=== PATIENT | female | born 1950 | race Caucasian/White ===

== ENCOUNTER → 2017-12-05 | Outpatient (CLI) | payer MEDICARE, OTHER ==
[~2017-12-05] MED LIST: ADVIL PO; ASPIR 8181 MG PO; ATORVASTATIN CA40 MG PO; B-12500 MCG PO; CENTRUM SILVER1 EAC4 PO; LASIX 40 MG TAB40 M2 PO; MAGOX 400400 MG PO; MOBIC7.5 MG PO; POTASSIUM20 PO; PROZAC40 MG PO; TIROSINT137 MCG PO; TRIAMTERENE-HC1 EAC1 PO; VITAMIN D-32000 UNIT PO
== END ==
LOC: M.RAD 13:02
DX: Z78.0 Asymptomatic menopausal state (principal)

== ENCOUNTER 2017-12-07 11:15 | Inpatient (IN) | payer MEDICARE, OTHER ==
[~2017-12-07] VITALS: Ht 154.9 cm; Wt 152.9 kg
[~2017-12-07 11:15] MED LIST changes: -ASPIR 8181 MG PO; -ATORVASTATIN CA40 MG PO; -LASIX 40 MG TAB40 M2 PO; -MAGOX 400400 MG PO; -MOBIC7.5 MG PO; -POTASSIUM20 PO; -TIROSINT137 MCG PO
[2017-12-07 11:24] VITALS: BP 167/83
[2017-12-07] MEDS ORDERED: LASIX 40 MG TAB40 M2 PO (11:28)
[2017-12-07] MEDS ORDERED: POTASSIUM20 PO (11:29)
[2017-12-07] MEDS ORDERED: TIROSINT137 MCG PO (11:29)
[2017-12-07] MEDS ORDERED: MOBIC7.5 MG PO (11:30)
[2017-12-07 12:07] LABS: PROTIME 9.4 Seconds (9.20-11.50)
[2017-12-07 12:08] LABS: ANION GAP 8 mmol/L (7-16); BUN 13 mg/dL (7-18); CALCIUM 8.6 mg/dL (8.5-10.1); CHLORIDE 105 mmol/L (98-107); CO2 28 mmol/L (21-32); CREATININE 0.9 mg/dL (0.6-1.3); GLUCOSE 108 mg/dL (70-99); POTASSIUM 4.1 mmol/L (3.5-5.1); SODIUM 141 mmol/L (136-145)
--- NOTE | 2017-12-07 12:14 | NUR ---
CT COMPLEATED PATIENT RETURNED TO ED
[2017-12-07 12:18] LABS: ALKALINE PHOSPHATASE 60 U/L (46-116); SGOT 13 U/L (15-37); SGPT 16 U/L (30-65); TOTAL BILIRUBIN 0.5 mg/dL (<0.1-1.0); TOTAL PROTEIN 6.8 g/dL (6.4-8.2); TROPONIN-I LEVEL <0.06 ng/mL (<0.06)
[2017-12-07 12:29] LABS: ABSOLUTE BASOPHILS 0.1 thou/uL (0.0-0.2); ABSOLUTE EOSINOPHILS 0.1 thou/uL (0.0-0.7); ABSOLUTE LYMPHOCYTES 1.1 thou/uL (0.8-5.3); ABSOLUTE MONOCYTES 0.4 thou/uL (0.0-1.2); ABSOLUTE NEUTROPHILS 3.9 thou/uL (1.6-8.1); BASOPHILS 1.3 %; EOSINOPHILS 2.4 %; HEMATOCRIT 42.2 % (37.0-47.0); HEMOGLOBIN 14.3 gm/dL (12.0-15.0); LYMPHOCYTES 20.1 %; MCH 32.7 pg (26.0-34.0); MCHC 33.9 g/dL (28.0-37.0); MCV 96.5 fL (80.0-100.0); MONOCYTES 7.6 %; MPV 9.4 fl. (7.2-11.1); NUCLEATED RBCS 0 /100WBC; PLATELET COUNT* 167 thou/uL (150-400); POLYS 68.6 %; RBC 4.38 mil/uL (4.20-5.00); WBC 5.6 thou/uL (4.0-11.0)
[2017-12-07 15:15] VITALS: BP 169/73
[2017-12-07 15:50] VITALS: BP 170/70
--- NOTE | 2017-12-07 16:38 | 2DMMODE ---
[place] [address] 2 D/M-MODE ECHOCARDIOGRAM Name: RICARDO ZAVALETA Room: [address] IN [facility]#: [id number] Admission: 12/07/17 Attend Phys: Edwin Simons, Discharge: Date of : 48 Date of Service: 12/07/17 1638 Report #: [id number] THIS REPORT FOR: //name// APPROVED REPORT Study performed: 12/07/2017 15:42:34 EXAM: Comprehensive 2D, Doppler, and color-flow Echocardiogram Patient Location: In-Patient Room #: 200 Status: routine BSA: 2.35 HR: 57 bpm BP: 169/73 mmHg Rhythm: NSR Other Information Study Quality: Good Indications CVA/TIA Echo Enhancing Agent Indication: Rule out Shunt Agent(s) / Amount(s) Used: Agitated Saline 10 cc 2D Dimensions LVEF(%): 77.52 (>50%) IVSd: 11.94 (7-11mm) LVOT Diam: 19.04 (18-24mm) LVDd: 42.33 mm PWd: 9.84 (7-11mm) Ascending Ao: 29.65 (22-36mm) LVDs: 22.94 (25-40mm) Aortic Root: 29.65 mm Shaw's LVEF: 77.52 % Volumes Left Atrial Volume (Systole) LA ESV Index: 21.30 mL/m2 Aortic Valve AoV Peak Jacob.: 1.45 m/s AO Peak Gr.: 8.46 mmHg LVOT Max P.69 mmHg AO Mean Gr.: 4.32 mmHg LVOT Mean P.63 mmHg LVOT Max V: 1.29 m/s AO V2 VTI: 35.12 cm LVOT Mean V: 0.72 m/[place] [address] 2 D/M-MODE ECHOCARDIOGRAM Name: RICARDO ZAVALETA Room: [address] IN [facility]#: [id number] Admission: 12/07/17 Attend Phys: Edwin Simons, Discharge: Date of : 48 Date of Service: 12/07/17 1638 Report #: [id number] PATRICIO (VTI): 2.56 cm2 LVOT V1 VTI: 31.58 cm Mitral Valve E/A Ratio: 0.65 MV Decel. Time: 301.47 ms MV E Max Jacob.: 0.70 m/s MV PHT: 87.43 ms MVA (PHT): 2.52 cm2 TDI E/Lateral E': 6.36 E/Medial E': 5.83 Medial E' Jacob.: 0.12 m/s Lateral E' Jacob.: 0.11 m/s Pulmonary Valve PV Peak Jacob.: 1.05 m/s PV Peak Gr.: 4.42 mmHg Tricuspid Valve TR Peak Gr.: 11.71 mmHg RVSP: 16.00 mmHg Left Ventricle The left ventricle is normal size. There is normal LV segmental wall motion. There is normal left ventricular wall thickness. Left ventricular systolic function is normal. The left ventricular ejection fraction is within the normal range. No left ventricle thrombus noted on this study. LVEF is 60-65%. Grade I - abnormal relaxation pattern. Right Ventricle The right ventricle is normal size. The right ventricular systolic function is normal. Atria The left atrium size is normal. Interatrial septum is intact without evidence of ASD or PFO. The right atrium size is normal. Aortic Valve The aortic valve is normal in structure. No aortic regurgitation is present. There is no aortic valvular stenosis. Mitral Valve The mitral valve is normal in structure. Trace mitral regurgitation. No evidence of mitral valve stenosis. Tricuspid Valve The tricuspid valve is normal in [place] [address] 2 D/M-MODE ECHOCARDIOGRAM Name: RICARDO ZAVALETA Room: [address] [place] .#: [id number] Admission: 12/07/17 Attend Phys: Edwin Simons, Discharge: Date of : 48 Date of Service: 12/07/17 1638 Report #: [id number] regurgitation. The RVSP is ___16____ mmHg. Pulmonic Valve The pulmonary valve is normal in structure. There is no pulmonic valvular regurgitation. Great Vessels The aortic root is normal in size. IVC is normal in size and collapses with >50% inspiration Pericardium There is no pericardial effusion. <Conclusion> Interatrial septum is intact without evidence of ASD or PFO. LVEF is 60-65%. Grade I - abnormal relaxation pattern. There is normal LV segmental wall motion. <ELECTRONICALLY SIGNED> By: Alexandre Massey MD, FACC 12/07/17 1638 1638 1638 Alexandre Massey MD, FACC /INF
[2017-12-07] MEDS ORDERED: MAGOX 400400 MG PO (17:49)
--- NOTE | 2017-12-07 18:19 | NUR ---
RECEIVED REPORT FROM EVARISTO IN ER. PT TRANSFERED TO [facility] FLOOR AT 1545. PT A&O X4. VSS. O2 SAT 98% ON 2L PER NC. MATE SHIP IN PLACE TRACING SB TO SR. ADMISSION HISTORY, ASSESSMENT AND EDUCATION COMPLETED CHARTED. PT ORIENTED TO ROOM, BED AND CALL LIGHT. PT AWARE OF FALL PRECAUTIONS. BEDSIDE SWALLOW COMPLETED, PT PASSED. DIET PROGRESSED TO REGULAR. FULL NIH COMPLETED, SCORE OF 0. PT STATES LEFT EYE PAIN HAS RESOLVED AT THIS TIME. IV PATENT AND INFUSING NS. PT EATING AND DRINKING WITHOUT ISSUE. PT UP WITH STANDBY ASSIST TO THE BATHROOM - VOIDING WITHOUT ISSUE. BM TODAY. MRI, MRA, ECHO, AND HEAD CT COMPLTED. SEE RESULTS. PT INFORMED OF PLAN OF CARE. PT COMMUNICATES UNDERSTANDING. FALL PRECAUTIONS ARE IN PLACE. HOURLY ROUNDING COMPLETED. CALL LIGHT IS WITHIN REACH. WILL CONTINUE TO MONITOR FOR DURATION OF SHIFT.
[2017-12-07 19:40] VITALS: BP 169/62
[2017-12-08 00:31] VITALS: BP 134/53
--- NOTE | 2017-12-08 02:40 | NUR ---
ASSUMED CARE OF PT AT 1900. PT IS ALERT AND ORIENTED. VSS. PERRLA. STEADY GAIT. NO COMPLAINTS OF PAIN. NIH IS 0. PT IS SINUS RYTHM ON THE TELEMETRY. PT IS RESTING COMFORTABLY IN BED. RESPIRATIONS ARE EVEN AND NONLABORED. WILL CONTINUE TO MONITOR PT.
[2017-12-08 04:06] LABS: GLYCOHEMOGLOBIN (HGB A1C) 5.5 % (4.8-5.6)
[2017-12-08 04:34] VITALS: BP 135/56
[2017-12-08 05:15] LABS: ABSOLUTE BASOPHILS 0.1 thou/uL (0.0-0.2); ABSOLUTE EOSINOPHILS 0.2 thou/uL (0.0-0.7); ABSOLUTE LYMPHOCYTES 1.5 thou/uL (0.8-5.3); ABSOLUTE MONOCYTES 0.6 thou/uL (0.0-1.2); ABSOLUTE NEUTROPHILS 4.2 thou/uL (1.6-8.1); EOSINOPHILS 2.6 %; HEMATOCRIT 39.7 % (37.0-47.0); HEMOGLOBIN 13.3 gm/dL (12.0-15.0); LYMPHOCYTES 22.1 %; MCH 32.7 pg (26.0-34.0); MCHC 33.5 g/dL (28.0-37.0); MCV 97.9 fL (80.0-100.0); MONOCYTES 9.8 %; MPV 9.7 fl. (7.2-11.1); NUCLEATED RBCS 0 /100WBC; PLATELET COUNT* 152 thou/uL (150-400); POLYS 64.5 %; RBC 4.06 mil/uL (4.20-5.00); RDW-CV 13.9 % (10.5-14.5); WBC 6.6 thou/uL (4.0-11.0)
[2017-12-08 05:38] LABS: CHOLESTEROL 173 mg/dL (<200); HDL CHOLESTEROL 57 mg/dL (>40); LDL CHOLESTEROL 101 mg/dL (<100); TRIGLYCERIDE 78 mg/dL (<150); VLDL 16 mg/dL (<40)
[2017-12-08 05:43] LABS: SERUM ASSESSMENT CLEAR
[2017-12-08 05:57] LABS: CALCIUM 8.4 mg/dL (8.5-10.1); CREATININE 0.8 mg/dL (0.6-1.3); POTASSIUM 4.5 mmol/L (3.5-5.1)
[2017-12-08 08:00] VITALS: BP 139/62
--- NOTE | 2017-12-08 09:56 | NUR ---
P.T. ORDERS RECEIVED. CHART REVIEWED. NSG NOTES INDICATE PT UP WITH STEADY GAIT. SPOKE WITH NSG AND PT WHO BOTH REPORT PT UP INDEP W/O DIFFICULTY. PT HAS NO CONCERNS REGARDING MOBILITY, OTHER THAN ASSOCIATED KNEE PAIN AND SHOULDER PAIN, PRESENT PRIOR TO TIA SYMPTOMS. NO ACUTE P.T. INTERVENTION INDICATED AT THIS TIME.
[2017-12-08] MEDS ORDERED: ATORVASTATIN CA40 MG PO (10:49)
[2017-12-08 10:53] VITALS: BP 139/62
[2017-12-08] MEDS ORDERED: ASPIR 8181 MG PO (10:53)
--- NOTE | 2017-12-08 11:53 | EKG ---
[place] [address] ELECTROCARDIOGRAM REPORT Name: RICARDO ZAVALETA Room: [address] ADM IN [facility].#: [id number] Admission: 12/07/17 Attend Phys: Edwin Simons MD Discharge: Date of : 48 Report #: [id number] THIS REPORT FOR: //name// [facility] ED Test Date: 2017-12-07 Test Time: 11:25:10 Pat Name: RICARDO ZAVALETA Department: Room: [facility] Gender: F Retention Manager: Bety VELAZQUEZ : 1950 Requested By: Jose Luis Hill Order Number: [id number] MD: Eladio Guillermo Measurements Intervals [place] Rate: 73 P: 37 NJ: 148 QRS: 47 QRSD: 96 T: 69 QT: 400 QTc: 441 Interpretive Statements Sinus rhythm No previous ECG available for comparison Electronically Signed On 12-08-2017 11:53:39 [place]ORTER [place] by Eladio Guillermo [email or web address] <ELECTRONICALLY SIGNED> By: Eladio Guillermo MD, [facility] 12/08/17 1153 D: [id number] Eladio Guillermo MD, FACC /EPI
--- NOTE | 2017-12-08 12:44 | NUR ---
ASSUMED CARE OF PT AT 0730. PT RESTING IN BED WAITING FOR BREAKFAST. PT A&0X4. PT COMPLAINS OF PAIN TO RIGHT SHOULDER-STATES IT IS PROBABLY FROM ARTHRITIS. DENIES ANY NEED FOR PAIN MEDICATION. PT TRACING SR ON THE VMWARE ENGINEER. 1+EDEMA NOTED TO BILATERAL LE'S. PT ON RA SAT UPPER 90'S. DENIES ANY SHORTNESS OF BREATH. VSS. IVF. NIH COMPLETED. PT SCORING ZERO. PT GOAL FOR TODAY IS TO BE SEEN BY NEURO AND OPHTHALMAOLOGY AND DISCHARGE HOME AFTER. PT UP AD VINICIUS IN ROOM. AM ASSESSMENT CHARTED. MEDICATIONS PER DEC. PT REPOSITIONS SELF. HOURLY ROUNDING OBSERVED. BED IN LOW POSITION. CALL LIGHT WITHIN REACH. WILL CONTINUE PLAN OF CARE.
--- NOTE | 2017-12-08 13:30 | NUR ---
DISCHARGE ORDERS RECEIVED. DISCHARGE INSTRUCTIONS, CARE NOTES, SCRIPTS AND FOLLOW UP APPTS GIVEN TO PT. PT COMMUNICATES UNDERSTANDING OF DISCHARGE TEACHING. IV AND UPHOLSTERY HANDLER REMOVED. PT DISCHARGED WITH ALL BELONGINGS AND PAPERWORK VIA WHEELCHAIR WITH NURSING STAFF TO OWN PERSONAL VEHICLE.
--- NOTE | 2017-12-08 13:40 | NUR ---
PT. DISCHARGED TO HOME PRIOR TO O.T. EVAL. PLEASE ORDER FURTHER O.T. SERVICES IF NEEDED. PER NURSING NOTES, PT. WAS UP IN THE ROOM AD VINICIUS.
== END 2017-12-08 13:40 | disposition home or self-care (01) | DRG 683 ==
LOC: M.ERS 11:15 → M.TBA-ER 13:13 → M.2W 13:13
PROVIDERS: Emergency Medicine; ADMIT Internal Medicine
DX: I12.9 Hypertensive chronic kidney disease with stage 1 through stage 4 chronic kidney disease, or unspecified chronic kidney disease (principal); Z68.44 Body mass index [BMI] 60.0-69.9, adult; E66.01 Morbid (severe) obesity due to excess calories; N18.2 Chronic kidney disease, stage 2 (mild); R29.810 Facial weakness; M17.12 Unilateral primary osteoarthritis, left knee; I10 Essential (primary) hypertension; E03.9 Hypothyroidism, unspecified; Z79.82 Long term (current) use of aspirin; Z79.899 Other long term (current) drug therapy

== ENCOUNTER → 2018-10-04 | Outpatient (CLI) | payer MEDICARE, OTHER ==
[~2018-10-04] MED LIST changes: +ASPIR 8181 MG PO; +ATORVASTATIN CA40 MG PO; +LASIX 40 MG TAB40 M2 PO; +MAGOX 400400 MG PO; +MOBIC7.5 MG PO; +POTASSIUM20 PO; +TIROSINT137 MCG PO
== END ==
LOC: M.RAD 10:02
DX: Z12.31 Encounter for screening mammogram for malignant neoplasm of breast (principal)

== ENCOUNTER → 2019-04-09 | Outpatient (CLI) | payer MEDICARE, OTHER | LOC: M.RAD 12:20 | DX: M17.11 Unilateral primary osteoarthritis, right knee (principal); M79.671 Pain in right foot; M25.571 Pain in right ankle and joints of right foot ==

== ENCOUNTER → 2019-10-11 | Outpatient (CLI) | payer MEDICARE, OTHER | LOC: M.RAD 10-04 10:45 | DX: Z12.31 Encounter for screening mammogram for malignant neoplasm of breast (principal) ==

== ENCOUNTER → 2020-12-03 | Outpatient (CLI) | payer MEDICARE, OTHER | LOC: M.RAD 10:00 | PROVIDERS: ATTEND Registered Nurse Diabetes Educator | DX: Z12.31 Encounter for screening mammogram for malignant neoplasm of breast (principal) ==